=== PATIENT | male | born 2005 | race Caucasian/White ===

== ENCOUNTER 2024-11-22 06:40 | Inpatient (IN) | payer OTHER ==
[~2024-11-22] VITALS: Ht 175.3 cm; Wt 79.7 kg
[2024-11-22 07:15] LABS: HEMATOCRIT 45.8 % (42.0-52.0); HEMOGLOBIN 15.8 g/dl (13.5-17.5); MEAN CORPUSCULAR HGB CONC 34.5 g/dl (32.0-36.5); MEAN CORPUSCULAR VOLUME 89.8 fl (80.0-96.0); PLATELET COUNT, AUTOMATED 222 10^3/uL (150-450)
[2024-11-22 07:49] LABS: ETHYL ALCOHOL (ETHANOL) 0.269 % (0.000-0.010)
[2024-11-22 07:51] LABS: ALBUMIN 4.7 G/DL (3.2-5.2); ALKALINE PHOSPHATASE 92 U/L (40-129); ALT/SGPT 84 U/L (7.0-40); AST/SGOT 88 U/L (<34); BILIRUBIN,DIRECT 0.1 MG/DL (<0.4); BILIRUBIN,TOTAL 0.5 MG/DL (0.3-1.2); BLOOD UREA NITROGEN 8 MG/DL (9-23); CALCIUM LEVEL 9.6 MG/DL (8.5-10.1); CARBON DIOXIDE LEVEL 28 MMOL/L (20-31); CHLORIDE LEVEL 104 MMOL/L (98-107); CREATININE FOR GFR 0.84 MG/DL (0.70-1.30); GLOMERULAR FILTRATION RATE > 60.0 (>60); GLUCOSE, FASTING 95 MG/DL (60-100); POTASSIUM SERUM 3.8 MMOL/L (3.5-5.1); SALICYLATE LEVEL < 3.0 MG/DL (<30); SODIUM LEVEL 144 MMOL/L (136-145); TOTAL PROTEIN 8.2 G/DL (5.7-8.2)
[2024-11-22 07:53] LABS: THYROID STIMULATING HORMONE 7.036 uIU/ML (0.55-4.78)
[2024-11-22] MEDS ORDERED: LORazepam 2 MG TAB PO PRN ×2 (08:35→21:15)
[2024-11-22] MEDS: MULTIVITAMINS/MINERALS THERAP 1 TAB PO SCH (08:53)
[2024-11-22] MEDS: FOLIC ACID 1MG TAB PO SCH (08:54)
[2024-11-22] MEDS: THIAMINE 100 MG TAB PO SCH (08:54)
[2024-11-22 08:57] LABS: AMPHETAMINES LEVEL URINE NEGATIVE (NEGATIVE); BARBITURATES URINE NEGATIVE (NEGATIVE); BENZODIAZEPINES URINE NEGATIVE (NEGATIVE); CANNABINOIDS URINE NEGATIVE (NEGATIVE); COCAINE METABOLITE URINE NEGATIVE (NEGATIVE); METHADONE URINE NEGATIVE (NEGATIVE); OPIATES URINE NEGATIVE (NEGATIVE); PHENCYCLIDINE URINE NEGATIVE (NEGATIVE)
[2024-11-22] MEDS ORDERED: HOME MED LIST COMPLETE! XX SCH (19:30)
[2024-11-22] MEDS ORDERED: MOM 30ML SUSPENSION UDC PO PRN (21:15)
[2024-11-22] MEDS ORDERED: diphenhydrAMINE 25MG CAP PO PRN (21:15)
[2024-11-22] MEDS ORDERED: ACETAMINOPHEN 325 MG TAB PO PRN (21:15)
[2024-11-22] MEDS ORDERED: IBUPROFEN 400MG TAB PO PRN (21:15)
[2024-11-22] MEDS ORDERED: MAALOX 30 ML SUSP *UDC PO PRN (21:15)
[2024-11-22 22:21] VITALS: BP 146/86
[2024-11-23 06:44] VITALS: BP 146/84; TEMP 97.8; O2SAT 100
[2024-11-23 07:06] VITALS: BP 146/84
[2024-11-23] MEDS: MULTIVITAMINS/MINERALS THERAP 1 TAB PO SCH (09:15)
[2024-11-23] MEDS: FOLIC ACID 1MG TAB PO SCH (09:15)
[2024-11-23] MEDS: THIAMINE 100 MG TAB PO SCH (09:15)
[2024-11-23] MEDS: ESCITALOPRAM OXALATE 10 MG TAB (LEXAPRO) PO SCH (09:35)
[2024-11-23] MEDS: NICOTINE POLACRILEX 2 MG GUM PO PRN (11:28)
[2024-11-23 15:00] VITALS: BP 140/60
[2024-11-23 15:08] VITALS: BP 163/93; TEMP 97.1; O2SAT 95
[2024-11-23] MEDS: traZODone 50 MG TAB PO PRN (20:37)
[2024-11-23 22:24] VITALS: BP 160/80
[2024-11-24 06:47] VITALS: BP 150/62; TEMP 97.5; O2SAT 98
[2024-11-24 06:48] VITALS: BP 150/62
[2024-11-24 14:55] VITALS: BP 130/74; TEMP 98; O2SAT 99
[2024-11-25 06:51] VITALS: BP 127/63; TEMP 97.6; O2SAT 98
[2024-11-25] MEDS: NICOTINE 14 MG/24 HR TRANSDERMAL TD SCH (08:18)
[2024-11-25 15:36] VITALS: BP 139/78; TEMP 98.2; O2SAT 98
[2024-11-26 06:27] VITALS: BP 104/66; TEMP 97.7; O2SAT 99
[2024-11-26] MEDS: ESCITALOPRAM OXALATE 10 MG TAB (LEXAPRO) PO SCH (08:19)
[2024-11-26 15:43] VITALS: BP 142/78; TEMP 97.6; O2SAT 100
[2024-11-27 06:25] VITALS: BP 116/66; TEMP 97.3; O2SAT 100
[2024-11-27 15:01] VITALS: BP 131/75; TEMP 98.1; O2SAT 99
[2024-11-28 06:32] VITALS: BP 109/78; TEMP 98; O2SAT 99
[2024-11-28 15:48] VITALS: BP 132/80; TEMP 97.6; O2SAT 100
[2024-11-29] MEDS ORDERED: HYDR-3363 PO (00:20)
[2024-11-29] MEDS ORDERED: LEXA1TAB PO (00:20)
[2024-11-29] MEDS ORDERED: TRAZ-252 PO (00:20)
[2024-11-29 06:32] VITALS: BP 125/67; TEMP 97.4; O2SAT 98
== END 2024-11-29 11:05 | disposition home or self-care (01) | DRG 885 ==
LOC: M ED 06:40 → M ED INP 21:12 → M PSY 21:49
PROVIDERS: ADMIT Psychiatry & Neurology Neurology; ATTEND Psychiatry & Neurology Neurology
DX: F33.1 Major depressive disorder, recurrent, moderate (principal); R45.851 Suicidal ideations; F10.20 Alcohol dependence, uncomplicated; F41.0 Panic disorder [episodic paroxysmal anxiety]